=== PATIENT | male | born 1960 | race American Indian/Alaskan Native ===

== ENCOUNTER 2016-09-24 04:23 | Emergency (ER) | payer BC ==
[2016-09-24 06:18] LABS: BUN/Creatinine Ratio 17.08; Blood Urea Nitrogen 41 mg/dL (9-20); Calcium 9.5 mg/dL (8.4-10.2); Carbon Dioxide 22 mmol/L (22-30); Glucose 168 mg/dL (75-100)
[2016-09-24 06:19] LABS: Anion Gap 21 mmol/L; Chloride 102.3 mmol/L (98-107); Potassium 5.2 mmol/L (3.6-5.0); Sodium 140 mmol/L (137-145)
[2016-09-24 06:21] LABS: Basophils % (Auto) 0.7 % (0.0-1.8); Eosinophils % (Auto) 4.9 % (0.0-4.3); Hematocrit 37.9 % (35.5-45.6); Hemoglobin 12.5 gm/dl (11.8-15.2); Mean Corpuscular HGB Conc 33 % (32-34); Mean Corpuscular Hemoglobin 27 pg (28-32); Mean Corpuscular Volume 81 fl (84-94); Platelet Count 225 K/mm3 (140-440); Red Blood Count 4.68 M/mm3 (3.65-5.03); Red Cell Distribution Width 14.3 % (13.2-15.2); White Blood Count 6.9 K/mm3 (4.5-11.0)
[2016-09-24 08:33] LABS: Bilirubin,Urine NEG (Negative); Blood,Urine SM (Negative); Ketones,Urine NEG (Negative); Leukocyte Esterase,Urine NEG (Negative); Nitrite,Urine NEG (Negative); Urobilinogen,Urine < 2.0 mg/dL (<2.0)
[2016-09-24 08:49] LABS: Protein,Urine >500 mg/dL (Negative)
--- NOTE | 2016-09-24 09:57 | XRay Report ---
ROUTINE CHEST, TWO VIEWS: HISTORY: Shortness of breath. The trachea, heart, mediastinal contour, lung del rosario and bony thorax are unremarkable. Mild pulmonary venous congestion has resolved since 05/29/16. IMPRESSION: Unremarkable chest x-ray.
--- NOTE | 2016-09-24 12:24 | Emergency Department Report ---
HPI - General Chief Complaint: Upper Respiratory Infection Time Seen by Provider: 09/24/16 12:09 - HPI HPI: Chief complaint: Cough HPI: Patient is 56-year-old male with a history of renal insufficiency, congestive heart failure, hypertension who states he's had a cough for the last week. He states he has clear sputum. No fever no shortness of breath no chest pain. Patient did have his flu shot. Patient states that his cough becomes so bad at times that he retches. Mode of arrival: [private car] Source: [Patient] [old chart] Began: One week Duration: One week Context: See above Quality: Pain-free Severity: 0 out of 10 Improved with: Nothing Worsened with: [Nothing Associated signs and symptoms: See above ED Past Medical Hx - Past Medical History Hx Hypertension: Yes Hx Congestive Heart Failure: Yes Hx Diabetes: Yes Hx Renal Disease: Yes (decreased kidney function in the past) Hx Asthma: No Hx COPD: No - Social History Smoking Status: Never Smoker - Medications Home Medications: Home Medications Medication Instructions Recorded Confirmed Last Taken Type Dulaglutide [Trulicity] 1.5 mg SQ 1XW 05/30/16 05/30/16 Unknown History Ergocalciferol [Vitamin D2] 1 cap PO 1XW 05/30/16 05/30/16 Unknown History Ezetimibe/Simvastatin (Nf) 1 tab PO QHS 05/30/16 05/30/16 Unknown History [Vytorin 10-40 mg (Nf)] Carvedilol [Coreg] 25 mg PO BID #60 tablet 05/31/16 Unknown Rx Furosemide [Lasix] 20 mg PO QDAY #14 tablet 05/31/16 Unknown Rx amLODIPine [Norvasc] 5 mg PO DAILY #30 tab 05/31/16 Unknown Rx hydrALAZINE [Apresoline TAB] 50 mg PO BID #60 tablet 05/31/16 Unknown Rx Benzonatate [Tessalon Perles] 200 mg PO Q8HR PRN #20 capsule 09/24/16 Unknown Rx Ondansetron [Zofran Odt] 4 mg PO Q4H PRN #14 tab.rapdis 09/24/16 Unknown Rx ED Review of Systems ROS: Stated complaint: DRY HEAVING, COUGH Other details as noted in HPI ROS Constitutional: No fever ENT: No uri symptoms Cardiovascular: No chest pain Respiratory: No sob GI: No nausea vomiting or diarrhea : No dysuria frequency or urgency, Skin: No rash Neuro: No focal weakness or numbness Psych: No depression Edgar/lymph: Trace edema Physical Exam - Physical Exam Vital Signs: Vital Signs 09/24/16 05:33 Temperature 98.3 F Pulse Rate 69 Blood Pressure 173/83 O2 Sat by Pulse 96 Oximetry Physical Exam: GENERAL: The patient is well-developed well-nourished . HEENT: Normocephalic. Atraumatic. Extraocular motions are intact. Patient has moist mucous membranes. NECK: Supple. No meningitic signs are noted. There is no adenopathy noted. CHEST/LUNGS: Clear to auscultation. There is no respiratory distress noted. HEART/CARDIOVASCULAR: Regular. There is no tachycardia. ABDOMEN: Abdomen is soft, nontender. Patient has normal bowel sounds. There is no abdominal distention. SKIN: There is no rash. There is trace bilateral pedal edema. There is no diaphoresis. NEURO: The patient is awake, alert, and oriented. The patient is cooperative. The patient has no focal neurologic deficits. The patient has normal speech. MUSCULOSKELETAL: There is no tenderness or deformity. There is no limitation range of motion. There is no evidence of acute injury. ED Course Vital Signs 09/24/16 05:33 Temperature 98.3 F Pulse Rate 69 Blood Pressure 173/83 O2 Sat by Pulse 96 Oximetry ED Medical Decision Making - Lab Data Result diagrams: 09/24/16 05:50 09/24/16 05:50 - EKG Data -: EKG Interpreted by Nh EKG shows normal: sinus rhythm Rate: normal (71) - EKG Data When compared to previous EKG there are: no significant change Interpretation: nonspecific ST-T wave jamaal, other (left anterior fascicular block ) - Radiology Data Radiology results: report reviewed (no acute process) Critical care attestation.: If time is entered above; I have spent that time in minutes in the direct care of this critically ill patient, excluding procedure time. ED Disposition Clinical Impression: Renal insufficiency Upper respiratory infection Qualifiers: URI type: unspecified URI Qualified Code(s): J06.9 - Acute upper respiratory infection, unspecified Disposition: DISCHARGED TO HOME OR SELFCARE Is pt being admited?: No Does the pt Need Aspirin: No Condition: Stable Instructions: Upper Respiratory Infection (ED) Prescriptions: Benzonatate [Tessalon Perles] 200 mg PO Q8HR PRN #20 capsule PRN Reason: Cough Ondansetron [Zofran Odt] 4 mg PO Q4H PRN #14 tab.rapdis PRN Reason: Nausea And Vomiting Referrals: ARVIND JHAVERI MD [Primary Care Provider] - 7-10 days (Follow-up if there is no improvement or if you get worse.) Time of Disposition: 12:22
[2016-09-24 12:35] VITALS: BP 174/89
== END 2016-09-24 12:36 | disposition home or self-care (01) ==
LOC: ED 04:23
DX: J06.9 Acute upper respiratory infection, unspecified (principal); N28.9 Disorder of kidney and ureter, unspecified; I10 Essential (primary) hypertension; I50.9 Heart failure, unspecified; E11.9 Type 2 diabetes mellitus without complications
CPT/HCPCS: 36415; 71020; 80048; 81001; 83880; 84484; 85025; 93005; 93010

== ENCOUNTER 2016-10-24 17:05 | Outpatient (CLI) | payer BC ==
[2016-10-24 17:47] LABS: BUN/Creatinine Ratio 16.8; Calcium 8.3 mg/dL (8.4-10.2); Chloride 101.7 mmol/L (98-107); Potassium 4.5 mmol/L (3.6-5.0)
== END 2016-10-24 17:06 | disposition home or self-care (01) ==
LOC: LAB 17:05
PROVIDERS: ATTEND Internal Medicine Nephrology
DX: E87.5 Hyperkalemia (principal)
CPT/HCPCS: 36415; 80048

== ENCOUNTER → 2018-02-18 | Outpatient (CLI) | payer BC | END | disposition home or self-care (01) | LOC: SLR 11:00 | PROVIDERS: ATTEND Otolaryngology | DX: G47.33 Obstructive sleep apnea (adult) (pediatric) (principal); I13.0 Hypertensive heart and chronic kidney disease with heart failure and stage 1 through stage 4 chronic kidney disease, or unspecified chronic kidney disease; I50.31 Acute diastolic (congestive) heart failure; E11.22 Type 2 diabetes mellitus with diabetic chronic kidney disease; N18.4 Chronic kidney disease, stage 4 (severe); D63.1 Anemia in chronic kidney disease | CPT/HCPCS: 95810 ==

== ENCOUNTER 2018-03-26 15:45 | Emergency (ER) | payer BC ==
[2018-03-26 16:40] LABS: Bilirubin,Urine NEG (Negative); Blood,Urine NEG (Negative); Color,Urine Straw (Yellow); Urobilinogen,Urine < 2.0 mg/dL (<2.0); WBC,Urine < 1.0 /HPF (0.0-6.0)
[2018-03-26 16:59] LABS: Basophils % (Auto) 0.4 % (0.0-1.8); Eosinophils # (Auto) 0.1 K/mm3 (0.0-0.4); Eosinophils % (Auto) 1.3 % (0.0-4.3); Lymphocytes % (Auto) 22.2 % (13.4-35.0); Mean Corpuscular HGB Conc 37 % (32-34); Mean Corpuscular Hemoglobin 28 pg (28-32); Mean Corpuscular Volume 76 fl (84-94); Monocytes # (Auto) 0.6 K/mm3 (0.0-0.8); Monocytes % (Auto) 6.7 % (0.0-7.3); Platelet Count 260 K/mm3 (140-440); Red Blood Count 4.37 M/mm3 (3.65-5.03); Red Cell Distribution Width 13.1 % (13.2-15.2)
[2018-03-26 17:12] LABS: Calcium 8.7 mg/dL (8.4-10.2)
[2018-03-26 17:18] LABS: Hematocrit 33.2 % (35.5-45.6); Hemoglobin 12.2 gm/dl (11.8-15.2)
[2018-03-26] MEDS ORDERED: K-DUR PO ONE (17:49)
[2018-03-26] MEDS ORDERED: HumuLIN R IV ONE ×3 (17:57→21:15)
[2018-03-26] MEDS ORDERED: NACL 0.9% 250ML 250 ML IV ONE (18:04)
--- NOTE | 2018-03-26 18:05 | Emergency Department Report ---
HPI - General Chief Complaint: Hyperglycemia Time Seen by Provider: 03/26/18 17:49 - HPI HPI: 57-year-old male presents to the emergency department, sent in by his easement worker Dr. Coates, with complaint of hyperglycemia. The patient has a history of insulin-dependent diabetes on Humalog for which he says he takes 30 units once daily. The patient says that he forgot to take it this morning. He has a history of chronic kidney disease but has not dialysis dependent, hypertension and CHF. He denies any physical complaints at this time. He did not take anything or was not given anything for his symptoms prior to presentation. His primary care physician is Dr. Arvind Soto. No recent travel or sick contacts at home. ED Past Medical Hx - Past Medical History Hx Hypertension: Yes Hx Congestive Heart Failure: Yes Hx Diabetes: Yes Hx Renal Disease: Yes (decreased kidney function in the past) Hx Asthma: No Hx COPD: No - Surgical History Past Surgical History?: No - Social History Smoking Status: Never Smoker Substance Use Type: None - Medications Home Medications: Home Medications Medication Instructions Recorded Confirmed Last Taken Type Ergocalciferol [Vitamin D2] 1 cap PO 1XW 05/30/16 12/13/17 Unknown History Ezetimibe/Simvastatin (Nf) 1 tab PO QHS 05/30/16 12/13/17 Unknown History [Vytorin 10-40 mg (Nf)] Carvedilol [Coreg] 25 mg PO BID #60 tablet 12/22/17 Unknown Rx Ezetimibe [Zetia] 10 mg PO QDAY tablet 12/22/17 Unknown Rx Furosemide [Lasix TAB] 20 mg PO BID #60 tablet 12/22/17 Unknown Rx NIFEdipine [Nifedipine ER] 30 mg PO QDAY #30 tab.er.24 12/22/17 Unknown Rx Pravastatin [Pravachol] 80 mg PO QHS #30 tablet 12/22/17 Unknown Rx Sodium Bicarbonate 650 mg PO BID #60 tablet 12/22/17 Unknown Rx amLODIPine [Norvasc] 10 mg PO DAILY #30 tablet 12/22/17 Unknown Rx hydrALAZINE [Apresoline TAB] 50 mg PO BID #60 tablet 12/22/17 Unknown Rx levoFLOXacin [Levaquin TAB] 750 mg PO Q48HR #7 tablet 12/22/17 Unknown Rx metOLazone [Metolazone] 5 mg PO QDAY #30 tablet 12/22/17 Unknown Rx Potassium Chloride [K-Dur] 20 meq PO BID #30 tab 03/27/18 Unknown Rx ED Review of Systems ROS: Stated complaint: ABNORMAL LABS Other details as noted in HPI Comment: All other systems reviewed and negative Constitutional: denies: chills, fever Eyes: denies: eye pain, eye discharge, vision change ENT: denies: ear pain, throat pain Respiratory: denies: cough, shortness of breath, wheezing Cardiovascular: denies: chest pain, palpitations Gastrointestinal: denies: abdominal pain, nausea, diarrhea Genitourinary: denies: urgency, dysuria Musculoskeletal: denies: back pain, joint swelling, arthralgia Skin: denies: rash, lesions Neurological: denies: headache, weakness, paresthesias Physical Exam - Physical Exam Vital Signs: Vital Signs 03/26/18 16:07 Temperature 98.5 F Pulse Rate 83 Respiratory 20 Rate Blood Pressure 160/79 O2 Sat by Pulse 99 Oximetry Physical Exam: GENERAL: The patient is well-developed well-nourished. HENT: Normocephalic. Atraumatic. Patient has moist mucous membranes. EYES: Extraocular motions are intact. Pupils equal reactive to light bilaterally. NECK: Supple. Trachea is midline. CHEST/LUNGS: Clear to auscultation. There is no respiratory distress noted. HEART/CARDIOVASCULAR: Regular. There is no tachycardia. There is no murmur. ABDOMEN: Abdomen is soft, nontender. Patient has normal bowel sounds. There is no abdominal distention. SKIN: Skin is warm and dry. NEURO: The patient is awake, alert, and oriented. The patient is cooperative. The patient has no focal neurologic deficits. The patient has normal speech. MUSCULOSKELETAL: There is no tenderness or deformity. There is no limitation range of motion. There is no evidence of acute injury. ED Course Vital Signs 03/26/18 16:07 Temperature 98.5 F Pulse Rate 83 Respiratory 20 Rate Blood Pressure 160/79 O2 Sat by Pulse 99 Oximetry ED Medical Decision Making - Lab Data Result diagrams: 03/26/18 16:39 03/27/18 03:49 - Medical Decision Making Patient presented with hyperglycemia but there was no venous acidosis or elevated anion gap and the patient did not appear to be in diabetic ketoacidosis. He was given 2 different doses of IV insulin but not a significant amount of fluid due to his history of CHF. He had some borderline hypokalemia so he was given 60 mEq of potassium chloride. The IV insulin brought his blood sugar down to a reasonable level but once again pushed the potassium intracellularly and his repeat potassium was 2.7. He was given another 60 mEq of potassium and the potassium levels rechecked and it had come up to 3.3. 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 - Differential Diagnosis DKA, electrolyte abnormalities, HHNK Critical Care Time: No Critical care attestation.: If time is entered above; I have spent that time in minutes in the direct care of this critically ill patient, excluding procedure time. ED Disposition Clinical Impression: Hypokalemia Diabetes mellitus with hyperglycemia Qualifiers: Diabetes mellitus type: type 1 Qualified Code(s): E10.65 - Type 1 diabetes mellitus with hyperglycemia CKD (chronic kidney disease) Qualifiers: Chronic kidney disease stage: unspecified stage Qualified Code(s): N18.9 - Chronic kidney disease, unspecified Disposition: DC-01 TO HOME OR SELFCARE Is pt being admited?: No Condition: Stable Instructions: Chronic Kidney Disease (ED), Hyperkalemia (ED), Diabetic Hyperglycemia (ED) Additional Instructions: Please follow-up with your diabetes physician later this morning as previously scheduled. Please follow-up with your easement worker. Return to the emergency Department with any worsening of your symptoms or any acute distress. Please continue to take your insulin. Try and stay away from foods that are high in sugar, carbohydrates and starches. Keep a blood sugar log. Prescriptions: Potassium Chloride [K-Dur] 20 meq PO BID #30 tab Referrals: ARVIND SOTO MD [Primary Care Provider] - 2-3 Days ELLIE NEGRETE MD [Staff Physician] - 2-3 Days Time of Disposition: 02:13
[2018-03-26] MEDS: KCL 10MEQ/100ML 10 MEQ/100 ML BAG IV SCH ×2 (19:02→22:11)
[2018-03-26] MEDS ORDERED: NACL 0.9% 100 ML ONE (20:06)
[2018-03-27] MEDS ORDERED: K-DUR PO ONE (01:14)
[2018-03-27] MEDS: KCL 10MEQ/100ML 10 MEQ/100 ML BAG IV SCH ×2 (02:14→04:07)
[2018-03-27 05:36] VITALS: BP 123/72
== END 2018-03-27 06:18 | disposition home or self-care (01) ==
LOC: ED 15:45
DX: E10.65 Type 1 diabetes mellitus with hyperglycemia (principal); N18.9 Chronic kidney disease, unspecified; E87.6 Hypokalemia; I11.0 Hypertensive heart disease with heart failure; I50.9 Heart failure, unspecified; Z79.899 Other long term (current) drug therapy
CPT/HCPCS: 36415; 80048; 81001; 82805; 82962; 84132; 85025; 96365; 96366; 96375; 99284; J3480; J7050; J1815

== ENCOUNTER 2018-04-03 11:00 | Outpatient (CLI) | payer BC | END 2018-04-03 11:01 | disposition home or self-care (01) | LOC: SLR 11:00 | PROVIDERS: ATTEND Otolaryngology | DX: G47.33 Obstructive sleep apnea (adult) (pediatric) (principal); I13.0 Hypertensive heart and chronic kidney disease with heart failure and stage 1 through stage 4 chronic kidney disease, or unspecified chronic kidney disease; E11.22 Type 2 diabetes mellitus with diabetic chronic kidney disease; E11.65 Type 2 diabetes mellitus with hyperglycemia; N18.4 Chronic kidney disease, stage 4 (severe); I50.23 Acute on chronic systolic (congestive) heart failure; I50.31 Acute diastolic (congestive) heart failure | CPT/HCPCS: 95811 ==

== ENCOUNTER 2018-10-08 20:52 | Inpatient (IN) | payer OTHER ==
--- NOTE | 2018-10-08 21:12 | Emergency Department Report ---
Blank Doc - Documentation Documentation: 58 y o male with a pmh of CHF,HTN,DM presents to Ed with Sob today after coming down some steps dull pain in mid chest no radiation labs MAin
[2018-10-08 21:30] LABS: Basophils # (Auto) 0.1 K/mm3 (0.0-0.1); Basophils % (Auto) 0.6 % (0.0-1.8); Eosinophils # (Auto) 0.1 K/mm3 (0.0-0.4); Eosinophils % (Auto) 1.3 % (0.0-4.3); Hemoglobin 12.2 gm/dl (11.8-15.2); Lymphocytes # (Auto) 1.9 K/mm3 (1.2-5.4); Lymphocytes % (Auto) 17.2 % (13.4-35.0); Mean Corpuscular HGB Conc 35 % (32-34); Mean Corpuscular Volume 78 fl (84-94); Monocytes # (Auto) 0.7 K/mm3 (0.0-0.8); Monocytes % (Auto) 6.9 % (0.0-7.3); Platelet Count 251 K/mm3 (140-440); Red Blood Count 4.47 M/mm3 (3.65-5.03); Red Cell Distribution Width 14.2 % (13.2-15.2)
[2018-10-08 21:39] LABS: INR 0.82 (0.87-1.13)
[2018-10-08 21:40] LABS: Partial Thromboplastin Time 20.7 Sec. (24.2-36.6)
[2018-10-08 22:06] LABS: Bilirubin,Urine NEG (Negative); Blood,Urine NEG (Negative); Color,Urine Straw (Yellow); Mucus,Urine FEW /HPF; Urobilinogen,Urine < 2.0 mg/dL (<2.0)
[2018-10-08 22:11] LABS: Calcium 8.6 mg/dL (8.4-10.2)
--- NOTE | 2018-10-08 22:13 | Emergency Department Report ---
ED Chest Pain HPI - General Chief Complaint: Chest Pain Stated Complaint: CHEST PAIN SOB Time Seen by Provider: 10/08/18 21:09 Source: patient Mode of arrival: Ambulatory Limitations: No Limitations - History of Present Illness Initial Comments: 58-year-old male presents to the emergency department with a complaint of midsternal chest pain and shortness of breath that started about 30 minutes prior to arrival. The symptoms worsen with exertion. He denies any fever, nausea, vomiting or diaphoresis. He did not take anything for his symptoms prior to arrival. He has a past medical history of hypertension, insulin-dependent diabetes, chronic kidney disease, CHF. His primary care physician is Dr. Tigist Hewitt, leveler helper is Dr. Coates, and his feature writer is Dr. Archibald. No recent travel or sick contacts at home. Severity scale (0 -10): 3 - Related Data Home Medications Medication Instructions Recorded Confirmed Last Taken Ergocalciferol [Vitamin D2] 1 cap PO 1XW 05/30/16 12/13/17 Unknown Ezetimibe/Simvastatin (Nf) 1 tab PO QHS 05/30/16 12/13/17 Unknown [Vytorin 10-40 mg (Nf)] Previous Rx's Medication Instructions Recorded Last Taken Type Carvedilol [Coreg] 25 mg PO BID #60 tablet 12/22/17 Unknown Rx Ezetimibe [Zetia] 10 mg PO QDAY tablet 12/22/17 Unknown Rx Furosemide [Lasix TAB] 20 mg PO BID #60 tablet 12/22/17 Unknown Rx NIFEdipine [Nifedipine ER] 30 mg PO QDAY #30 tab.er.24 12/22/17 Unknown Rx Pravastatin [Pravachol] 80 mg PO QHS #30 tablet 12/22/17 Unknown Rx Sodium Bicarbonate 650 mg PO BID #60 tablet 12/22/17 Unknown Rx amLODIPine [Norvasc] 10 mg PO DAILY #30 tablet 12/22/17 Unknown Rx hydrALAZINE [Apresoline TAB] 50 mg PO BID #60 tablet 12/22/17 Unknown Rx levoFLOXacin [Levaquin TAB] 750 mg PO Q48HR #7 tablet 12/22/17 Unknown Rx metOLazone [Metolazone] 5 mg PO QDAY #30 tablet 12/22/17 Unknown Rx Potassium Chloride [K-Dur] 20 meq PO BID #30 tab 03/27/18 Unknown Rx Tizanidine HCl [Zanaflex] 2 mg PO BID #20 capsule 07/05/18 Unknown Rx Allergies Allergy/AdvReac Type Severity Reaction Status Date / Time No Known Allergies Allergy Verified 03/26/18 16:07 Heart Score - HEART Score History: Moderately suspicious EKG: Normal Age: 45-65 Risk factors: 1-2 risk factors Troponin: 1-3x normal limit HEART Score: 4 - Critical Actions Critical Actions: 4-6 pts:12-16.6% risk of adverse cardiac event. Should be admitted ED Review of Systems ROS: Stated complaint: CHEST PAIN SOB Other details as noted in HPI Comment: All other systems reviewed and negative Constitutional: denies: chills, fever Eyes: denies: eye pain, vision change ENT: denies: ear pain, throat pain Respiratory: shortness of breath. denies: cough Cardiovascular: chest pain. denies: palpitations Gastrointestinal: denies: abdominal pain, vomiting Genitourinary: denies: dysuria, discharge Musculoskeletal: denies: back pain, arthralgia Skin: denies: rash, lesions Neurological: denies: headache, weakness ED Past Medical Hx - Past Medical History Previous Medical History?: Yes Hx Hypertension: Yes Hx Congestive Heart Failure: Yes Hx Diabetes: Yes Hx Renal Disease: Yes (decreased kidney function in the past) Hx Asthma: No Hx COPD: No - Surgical History Additional Surgical History: "nerve procedure on elbow", 10/02/2018 - Social History Smoking Status: Never Smoker Substance Use Type: None - Medications Home Medications: Home Medications Medication Instructions Recorded Confirmed Last Taken Type Ergocalciferol [Vitamin D2] 1 cap PO 1XW 05/30/16 12/13/17 Unknown History Ezetimibe/Simvastatin (Nf) 1 tab PO QHS 05/30/16 12/13/17 Unknown History [Vytorin 10-40 mg (Nf)] Carvedilol [Coreg] 25 mg PO BID #60 tablet 12/22/17 Unknown Rx Ezetimibe [Zetia] 10 mg PO QDAY tablet 12/22/17 Unknown Rx Furosemide [Lasix TAB] 20 mg PO BID #60 tablet 12/22/17 Unknown Rx NIFEdipine [Nifedipine ER] 30 mg PO QDAY #30 tab.er.24 12/22/17 Unknown Rx Pravastatin [Pravachol] 80 mg PO QHS #30 tablet 12/22/17 Unknown Rx Sodium Bicarbonate 650 mg PO BID #60 tablet 12/22/17 Unknown Rx amLODIPine [Norvasc] 10 mg PO DAILY #30 tablet 12/22/17 Unknown Rx hydrALAZINE [Apresoline TAB] 50 mg PO BID #60 tablet 12/22/17 Unknown Rx levoFLOXacin [Levaquin TAB] 750 mg PO Q48HR #7 tablet 12/22/17 Unknown Rx metOLazone [Metolazone] 5 mg PO QDAY #30 tablet 12/22/17 Unknown Rx Potassium Chloride [K-Dur] 20 meq PO BID #30 tab 03/27/18 Unknown Rx Tizanidine HCl [Zanaflex] 2 mg PO BID #20 capsule 07/05/18 Unknown Rx ED Physical Exam - General Limitations: No Limitations - Other Other exam information: GENERAL: The patient is well-developed well-nourished. HEENT: Normocephalic. Atraumatic. Patient has moist mucous membranes. EYES: Extraocular motions are intact. NECK: Supple. Trachea is midline. CHEST/LUNGS: Clear to auscultation. There is no respiratory distress noted. Chest pain is not reproducible to palpation of the chest wall. HEART/CARDIOVASCULAR: Regular. There is no tachycardia. There is no obvious murmur. ABDOMEN: Abdomen is soft, nontender. Patient has normal bowel sounds. There is no abdominal distention. SKIN: Skin is warm and dry. NEURO: The patient is awake, alert, and oriented. The patient is cooperative. The patient has no focal neurologic deficits. The patient has normal speech. MUSCULOSKELETAL: There is no tenderness or deformity. There is no evidence of acute injury. ED Course Vital Signs 10/08/18 10/08/18 21:09 22:49 Temperature 97.8 F Pulse Rate 80 Respiratory 18 18 Rate Blood Pressure 165/77 O2 Sat by Pulse 98 98 Oximetry DARRIAN score - Darrian Score Age > 65: (0) No Aspirin use within the Past 7 Days: (0) No 3 or more CAD Risk Factors: (1) Yes 2 or more Angina events in past 24 hrs: (1) Yes Known CAD with more than 50% Stenosis: (0) No Elevated Cardiac Markers: (1) Yes ST Deviation Greater than 0.5mm: (0) No DARRIAN Score: 3 ED Medical Decision Making - Lab Data Result diagrams: 10/08/18 21:20 10/08/18 21:20 - EKG Data -: EKG Interpreted by Me EKG shows normal: sinus rhythm, axis (left axis deviation), intervals, QRS complexes (Q waves to the inferior leads), ST-T waves Rate: normal - EKG Data When compared to previous EKG there are: no significant change Interpretation: unchanged when compared t (07/05/18) - Radiology Data Radiology results: report reviewed, image reviewed interpreted by me: Chest x-ray does not show any pneumothorax, pleural effusion, pneumonia or obvious focal consolidation. PROCEDURE: Nuclear medicine ventilation and perfusion lung scan. TECHNIQUE: Ventilation imaging was done in the posterior projection using 19.5 mCi of xenon-133 gas. Perfusion imaging was done in multiple projections using 6.2 mCi of technetium 99m MAA. HISTORY: Shortness of breath, elevated d-dimer. COMPARISONS: Comparison chest radiograph 10/08/2018. FINDINGS: There is fairly homogeneous, symmetrical ventilation bilaterally. There is no trapping of xenon gas during the washout phase of the study. The perfusion images are also fairly homogeneous. There are no significant perfusion abnormalities identified. The scan is normal and caries a very low probability of pulmonary embolism. IMPRESSION: Very low probability of pulmonary embolism. This document is electronically signed by Rodríguez Huynh MD., October 09 2018 12:08:29 AM ET Transcribed By: [facility] Dictated By: RODRÍGUEZ HUYNH MD Electronically Authenticated By: RODRÍGUEZ HUYNH MD Signed Date/Time: 10/09/18 0010 - Medical Decision Making This patient presents with acute midsternal chest pain or shortness of breath that started about 30 minutes prior to arrival. EKG does not show any signs of ST elevation OR. Chest x-ray does not show any focal consolidation, p neumothorax, pneumonia, pleural effusions, or any other acute process. Labs show his chronic kidney disease. He had an elevated troponin at 0.037 which is consistent with previous visits and also may be secondary to the chronic kidney disease. The patient had an elevated d-dimer and therefore a ventilation perfusion scan was done and resulted as low probability for a pulmonary embolism. The patient will be admitted to the hospital for further evaluation and treatment and was accepted for admission by the hospitalist, Dr. Roberts. - Differential Diagnosis OR, PE, Costochondritis, GERD, Pneumonia Critical Care Time: No Critical care attestation.: If time is entered above; I have spent that time in minutes in the direct care of this critically ill patient, excluding procedure time. ED Disposition Clinical Impression: Chronic kidney disease, stage IV (severe), Acute chest pain Hypertension Qualifiers: Hypertension type: essential hypertension Qualified Code(s): I10 - Essential (primary) hypertension Disposition: OP ADMIT IP TO THIS HOSP Is pt being admited?: Yes Condition: Fair Instructions: Chest Pain (ED), Hypertension (ED) Referrals: TIGIST HEWITT MD [Primary Care Provider] - 3-5 Days Time of Disposition: 00:27
--- NOTE | 2018-10-08 23:44 | XRay Report ---
PROCEDURE: XR CHEST ROUTINE 2V TECHNIQUE: 2 views of the chest: PA and lateral HISTORY: Chest pain. COMPARISONS: Radiographs dated December 17, 2017. FINDINGS: No lobar consolidation. No pleural effusion or pneumothorax. Cardiac and mediastinal silhouettes appear normal. Mild atherosclerotic vascular calcifications of th e aorta. No acute osseous abnormality. Mild thoracic endplate degenerative changes. IMPRESSION: No acute cardiopulmonary disease. This document is electronically signed by Shashi Puga DO., October 08 2018 11:43:08 PM ET
--- NOTE | 2018-10-09 00:10 | Nuclear Medicine Report ---
PROCEDURE: Nuclear medicine ventilation and perfusion lung scan. TECHNIQUE: Ventilation imaging was done in the posterior projection using 19.5 mCi of xenon-133 gas. Perfusion imaging was done in multiple projections using 6.2 mCi of technetium 99m MAA. HISTORY: Shortness of breath, elevated d-dimer. COMPARISONS: Comparison chest radiograph 10/08/2018. FINDINGS: There is fairly homogeneous, symmetrical ventilation bilaterally. There is no trapping of xenon gas d uring the washout phase of the study. The perfusion images are also fairly homogeneous. There are no significant perfusion abnormalities identified. The scan is normal and caries a very low probability of pulmonary embolism. IMPRESSION: Very low probability of pulmonary embolism. This document is electronically signed by Rodríguez Baires MD., October 09 2018 12:08:29 AM ET
[2018-10-09] MEDS ORDERED: BABY ASPIRIN PO ONE (00:18)
[2018-10-09] MEDS ORDERED: MORPHINE IV ONE (00:18)
[2018-10-09] MEDS ORDERED: SODIUM CHLORIDE FLUSH SYRINGE 10 ML IV PRN ×2 (00:31)
[2018-10-09] MEDS ORDERED: PERCOCET 5/325 PO PRN (00:31)
[2018-10-09] MEDS ORDERED: D50W (25GM) Syringe IV PRN (00:31)
[2018-10-09] MEDS ORDERED: TYLENOL PO PRN (00:31)
[2018-10-09] MEDS ORDERED: AMBIEN PO PRN (00:31)
[2018-10-09] MEDS ORDERED: ZOFRAN IV PRN (00:31)
[2018-10-09] MEDS ORDERED: NITROSTAT SL PRN (00:31)
--- NOTE | 2018-10-09 00:45 | History and Physical Report ---
History of Present Illness Date of examination: 10/09/18 Chief complaint: Chest pain History of present illness: 58-year-old male presents to the emergency department with a co mplaint of midsternal chest pain and shortness of breath that started about 30 minutes prior to arrival. The symptoms worsen with exertion. He denies any fever, nausea, vomiting or diaphoresis. He did not take anything for his symptoms prior to arrival. He has a past medical history of hypertension, insulin-dependent diabetes, chronic kidney disease, CHF. His primary care physician is Dr. Shahbaz Hewitt, sales development consultant is Dr. Coates, and his nylon mender is Dr. Archibald. No recent travel or sick contacts at home. Past Surgical History: Other (b/l knee surgery 1988) Social history: , lives with family. denies: smoking, alcohol abuse, prescription drug abuse, IV drug use Family history: diabetes (father, mother, ), other (mother passed due to cardiac arrest, she also had multiple sclerosis. 1 brother has DM, 1 brother from heart failure ) Past History Past Medical History: diabetes, heart failure, hypertension, hyperlipidemia, renal failure Social history: lives with family, full code Medications and Allergies Allergies Allergy/AdvReac Type Severity Reaction Status Date / Time No Known Allergies Allergy Verified 03/26/18 16:07 Home Medications Medication Instructions Recorded Confirmed Last Taken Type Ergocalciferol [Vitamin D2] 1 cap PO 1XW 05/30/16 12/13/17 Unknown History Ezetimibe/Simvastatin (Nf) 1 tab PO QHS 05/30/16 12/13/17 Unknown History [Vytorin 10-40 mg (Nf)] Carvedilol [Coreg] 25 mg PO BID #60 tablet 12/22/17 Unknown Rx Ezetimibe [Zetia] 10 mg PO QDAY tablet 12/22/17 Unknown Rx Furosemide [Lasix TAB] 20 mg PO BID #60 tablet 12/22/17 Unknown Rx NIFEdipine [Nifedipine ER] 30 mg PO QDAY #30 tab.er.24 12/22/17 Unknown Rx Pravastatin [Pravachol] 80 mg PO QHS #30 tablet 12/22/17 Unknown Rx Sodium Bicarbonate 650 mg PO BID #60 tablet 12/22/17 Unknown Rx amLODIPine [Norvasc] 10 mg PO DAILY #30 tablet 12/22/17 Unknown Rx hydrALAZINE [Apresoline TAB] 50 mg PO BID #60 tablet 12/22/17 Unknown Rx levoFLOXacin [Levaquin TAB] 750 mg PO Q48HR #7 tablet 12/22/17 Unknown Rx metOLazone [Metolazone] 5 mg PO QDAY #30 tablet 12/22/17 Unknown Rx Potassium Chloride [K-Dur] 20 meq PO BID #30 tab 03/27/18 Unknown Rx Tizanidine HCl [Zanaflex] 2 mg PO BID #20 capsule 07/05/18 Unknown Rx Review of Systems All systems: negative (as mentioned in HPI) Exam - Physical Exam Narrative exam: General: the patient is awake alert oriented to time place and person. no e vidence of acute distress HEENT: Head is atraumatic normocephalic,. Pupils equal round reactive to light and accommodation, extraocular movements intact. Oral mucosa moist. Oropharynx clear. No pharyngeal erythema or tonsillar exudate. Neck: Supple no JVD no thyromegaly or lymphadenopathy. Heart: Regular rate and rhythm no murmurs or gallops. S1 and S2 normal. PMI not displaced. Lungs: Clear to auscultation bilaterally. No rales rhonchi wheezing. Nonlabored breathing. Normal chest wall expansion. Abdomen: Soft, nondistended, and nontender. Normoactive bowel sounds. No hepatosplenomegaly. No abdominal masses or bruit appreciated. Extremities: No cyanosis/clubbing/ edema. Musculoskeletal: Normal range of movement all joints. No obvious deformity or tenderness to palpation. Normal muscle tone. Back: Normal alignment. No step-off. No midline or paraspinal tenderness. No CVA tenderness. Neurological: Grossly intact and nonfocal. No cerebellar signs. Cranial nerves II-12 grossly intact. Strength 5 out of 5 all 4 extremities. Sensations grossly intact. Skin: Warm and dry no rashes or bruises. Psychiatric: Normal mood. Appropriate affect and good insight and judgment. Vascular system: No lymphadenopathy. Distal pulses 2+ bilaterally. - Constitutional Vitals: Temp Pulse Resp BP Pulse Ox 97.8 F 76 14 142/62 96 10/08/18 21:09 10/09/18 00:30 10/09/18 00:30 10/09/18 00:30 10/09/18 00:30 Results - Labs CBC & Chem 7: 10/08/18 21:20 04/02/19 21:20 Labs: Laboratory Last Values WBC 10.8 K/mm3 (4.5-11.0) 10/08/18 21:20 RBC 4.47 M/mm3 (3.65-5.03) 10/08/18 21:20 Hgb 12.2 gm/dl (11.8-15.2) 10/08/18 21:20 Hct 35.0 % (35.5-45.6) L 10/08/18 21:20 MCV 78 fl (84-94) L 10/08/18 21:20 MCH 27 pg (28-32) L 10/08/18 21:20 MCHC 35 % (32-34) H 10/08/18 21:20 RDW 14.2 % (13.2-15.2) 10/08/18 21:20 Plt Count 251 K/mm3 (140-440) 10/08/18 21:20 Lymph % (Auto) 17.2 % (13.4-35.0) 10/08/18 21:20 [place] % (Auto) 6.9 % (0.0-7.3) 10/08/18 21:20 Eos % (Auto) 1.3 % (0.0-4.3) 10/08/18 21:20 Baso % (Auto) 0.6 % (0.0-1.8) 10/08/18 21:20 Lymph # 1.9 K/mm3 (1.2-5.4) 10/08/18 21:20 [place] # 0.7 K/mm3 (0.0-0.8) 10/08/18 21:20 Eos # 0.1 K/mm3 (0.0-0.4) 10/08/18 21:20 Baso # 0.1 K/mm3 (0.0-0.1) 10/08/18 21:20 Seg Neutrophils % 74.0 % (40.0-70.0) H 10/08/18 21:20 Seg Neutrophils # 8.0 K/mm3 (1.8-7.7) H 10/08/18 21:20 PT 11.8 Sec. (12.2-14.9) L 10/08/18 21:20 INR 0.82 (0.87-1.13) L 10/08/18 21:20 APTT 20.7 Sec. (24.2-36.6) L 10/08/18 21:20 D-Dimer 535.86 ng/mlDDU (0-234) H 10/08/18 21:20 Sodium 141 mmol/L (137-145) 10/08/18 21:20 Potassium 3.2 mmol/L (3.6-5.0) L 10/08/18 21:20 Chloride 98.1 mmol/L (98-107) 10/08/18 21:20 Carbon Dioxide 24 mmol/L (22-30) 10/08/18 21:20 Anion Gap 22 mmol/L 10/08/18 21:20 BUN 84 mg/dL (9-20) H 10/08/18 21:20 Creatinine 4.1 mg/dL (0.8-1.5) H 10/08/18 21:20 Estimated GFR 18 ml/min 10/08/18 21:20 BUN/Creatinine Ratio 20 % 10/08/18 21:20 Glucose 77 mg/dL (75-100) 10/08/18 21:20 Calcium 8.6 mg/dL (8.4-10.2) 10/08/18 21:20 Troponin T 0.037 ng/mL (0.00-0.029) H 10/08/18 21:20 NT-Pro-B Natriuret Pep 909.7 pg/mL (0-900) H 10/08/18 21:24 Urine Color Straw (Yellow) 10/08/18 21:32 Urine Turbidity Clear (Clear) 10/08/18 21:32 Urine pH 6.0 (5.0-7.0) 10/08/18 21:32 Ur Specific [place] 1.008 (1.003-1.030) 10/08/18 21:32 Urine Protein 100 mg/dl mg/dL (Negative) 10/08/18 21:32 Urine Glucose (UA) Neg mg/dL (Negative) 10/08/18 21:32 Urine Ketones Neg mg/dL (Negative) 10/08/18 21:32 Urine Blood Neg (Negative) 10/08/18 21:32 Urine Nitrite Neg (Negative) 10/08/18 21:32 Urine Bilirubin Neg (Negative) 10/08/18 21:32 Urine Urobilinogen < 2.0 mg/dL (<2.0) 10/08/18 21:32 Ur Leukocyte Esterase Neg (Negative) 10/08/18 21:32 Urine WBC (Auto) 1.0 /HPF (0.0-6.0) 10/08/18 21:32 Urine RBC (Auto) 3.0 /HPF (0.0-6.0) 10/08/18 21:32 U Epithel Cells (Auto) < 1.0 /HPF (0-13.0) 10/08/18 21:32 Urine Mucus Few /HPF 10/08/18 21:32 - Imaging and Cardiology EKG: pending, other Imaging and Cardiology: EKG shows normal: sinus rhythm, axis (left axis deviation), intervals, QRS complexes (Q waves to the inferior leads), ST-T waves Rate: normal Lung VQ scan: Low probability PE Chest x-ray: Showing no acute cardiopulmonary process no infiltrates or pulmonar y edema Assessment and Plan Assessment and plan: Assessment and plan: * Chest pain * Shortness of breath * Diabetes mellitus type 2 * CKD stage IV * Chronic congestive heart failure well compensated * Hypertension controlled * Hyperlipidemia * Hypokalemia Plan: The patient to medical floor with telemetry under observation under the chest pain protocol Check serial cardiac enzymes Check echocardiogram his last echocardiogram in December 2017 showed year for 50-55% no evidence of LVH mild pulmonary hypertension Patient follows with cardiology. Will be consulted Schedule patient for stress test in a.m. Continue his home medications diabetes is well-controlled with check hemoglobin A1c continue with sliding scale insulin Monitor blood sugars with Accu-Cheks every before meals and daily at bedtime VQ scan is negative or low probability for PE his shortness of breath is unexplained chest x-ray does not show volume overload We will treat symptomatically with oxygen and bronchodilators Monitor renal function closely avoid nephrotoxins and renally dose all medic ations Start the patient on aspirin 325 mg daily Monitor CBC and electrolytes Replace electrolytes as needed Potassium will be replaced DVT GI prophylaxis as ordered Monitor for the patient closely and adjust management as needed
[2018-10-09] MEDS ORDERED: MORPHINE ONE (00:53)
[2018-10-09 01:29] LABS: Basophils % (Auto) 0.4 % (0.0-1.8); Eosinophils % (Auto) 0.2 % (0.0-4.3); Hematocrit 33.4 % (35.5-45.6); Hemoglobin 11.6 gm/dl (11.8-15.2); Lymphocytes # (Auto) 1.8 K/mm3 (1.2-5.4); Lymphocytes % (Auto) 16.8 % (13.4-35.0); Mean Corpuscular HGB Conc 35 % (32-34); Mean Corpuscular Volume 79 fl (84-94); Monocytes # (Auto) 0.6 K/mm3 (0.0-0.8); Monocytes % (Auto) 5.3 % (0.0-7.3); Platelet Count 248 K/mm3 (140-440); Red Blood Count 4.25 M/mm3 (3.65-5.03); Red Cell Distribution Width 14.2 % (13.2-15.2)
[2018-10-09 01:45] LABS: Calcium 8.6 mg/dL (8.4-10.2)
[2018-10-09] MEDS: DUONEB *Not for PRN Use IH SCH ×3 (02:30→14:26)
[2018-10-09 03:21] LABS: Chol/HDL Ratio 1.34 %
[2018-10-09] MEDS: LASIX PO SCH ×2 (06:51→17:43)
[2018-10-09] MEDS: HEPARIN SUB-Q SCH ×3 (06:51→21:39)
--- NOTE | 2018-10-09 07:46 | Cat Scan Report ---
PROCEDURE: CT CHEST WO CON TECHNIQUE: Computerized axial tomography of the chest was performed without contrast material. This study is performed without intravenous contrast and the sensitivity for pathology, including neoplasm s, adenopathy, abscess, pulmonary embolism and aortic dissection, is reduced. CT DOSE LENGTH PRODUCT: mGycm HISTORY: r/o PNA COMPARISONS: None . FINDINGS: Heart and pericardium: Normal. Thoracic aorta: Normal. Pulmonary vasculature: Normal. Lymph nodes: There are nonenlarged calcified mediastinal lymph nodes suggesting old granulomatous in fection.. Lungs: The lungs are clear and expanded. There are no infiltrates.. Pleural space: No effusion, thickening, or pneumothorax. Musculoskeletal structures: No significant abnormality. Upper abdominal structures: No significant abnormality. IMPRESSION: The heart size is normal.. There are nonenlarged calcified mediastinal lymph nodes suggesting old granulomatous infection.. The lungs are clear and expanded. There are no infiltrates.. There is no pleural effusion or pneumothorax. This document is electronically signed by Derek Carson MD., October 09 2018 07:44:06 AM ET
[2018-10-09] MEDS: HumaLOG SUB-Q SCH ×4 (08:44→21:40)
[2018-10-09] MEDS: ZAROXOLYN PO SCH (09:26)
[2018-10-09] MEDS: APRESOLINE PO SCH ×2 (09:26→21:43)
[2018-10-09] MEDS: PROCARDIA XL PO SCH (09:27)
[2018-10-09] MEDS: ZANAFLEX PO SCH ×2 (09:27→21:38)
[2018-10-09] MEDS: SODIUM BICARBONATE PO SCH ×2 (09:27→21:38)
[2018-10-09] MEDS: NORVASC PO SCH (09:27)
[2018-10-09] MEDS: K-DUR PO SCH ×2 (09:27→21:39)
[2018-10-09] MEDS: COREG PO SCH ×2 (09:27→21:39)
[2018-10-09] MEDS: SODIUM CHLORIDE FLUSH SYRINGE 10 ML IV SCH ×2 (09:27→21:40)
[2018-10-09] MEDS: COLACE PO SCH ×2 (09:28→21:38)
[2018-10-09] MEDS ORDERED: NON-FORMULARY (Tizanidine Hcl [Zanaflex] 2 MG) PO SCH (10:00)
[2018-10-09] MEDS ORDERED: ASPIRIN PO SCH (10:00)
[2018-10-09] MEDS ORDERED: PNEUMOVAX 23 IM ONE (12:00)
--- NOTE | 2018-10-09 12:43 | Progress Note ---
Assessment and Plan Assessment and plan: Chest pain. Lung VQ scan was low probability for PE. Chest x-ray showed no acute cardiopulmonary process including no infiltrates or pulmonary edema. EKG showed no abnormalities. Follow-up echocardiogram, his last echocardiogram in December 2017 showed year for 50-55% no evidence of LVH mild pulmonary hypertension. Cardiology consulted. Stress test in am. Diabetes mellitus type 2. Check hemoglobin A1c continue with sliding scale insulin. Monitor blood sugars with Accu-Cheks every before meals and daily at bedtime Chronic congestive heart failure, compensated. Cont meds CKD stage IV Hypertension. Cont. antihypertensive meds Hyperlipidemia. Cont statins Hypokalemia. Replete K History Interval history: No new issues overnight. Hospitalist Physical - Constitutional Vitals: Temp Pulse Resp BP Pulse Ox 98.4 F 84 16 155/80 96 10/09/18 08:02 10/09/18 08:18 10/09/18 08:18 10/09/18 08:02 10/09/18 08:51 General appearance: Present: no acute distress, well-nourished - EENT Eyes: Present: PERRL, EOM intact ENT: hearing intact, clear oral mucosa, dentition normal - Neck Neck: Present: supple, normal ROM - Respiratory Respiratory effort: normal Respiratory: bilateral: CTA - Cardiovascular Rhythm: regular Heart Sounds: Present: S1 & S2. Absent: gallop, rub - Extremities Extremities: no ischemia, No edema, Full ROM - Abdominal General gastrointestinal: soft, non-tender, non-distended, normal bowel sounds - Integumentary Integumentary: Present: clear, warm, dry - Neurologic Neurologic: CNII-XII intact, moves all extremities Results - Labs CBC & Chem 7: 10/09/18 01:07 10/09/18 01:07 Labs: Laboratory Last Values WBC 10.8 K/mm3 (4.5-11.0) 10/09/18 01:07 RBC 4.25 M/mm3 (3.65-5.03) 10/09/18 01:07 Hgb 11.6 gm/dl (11.8-15.2) L 10/09/18 01:07 Hct 33.4 % (35.5-45.6) L 10/09/18 01:07 MCV 79 fl (84-94) L 10/09/18 01:07 MCH 27 pg (28-32) L 10/09/18 01:07 MCHC 35 % (32-34) H 10/09/18 01:07 RDW 14.2 % (13.2-15.2) 10/09/18 01:07 Plt Count 248 K/mm3 (140-440) 10/09/18 01:07 Lymph % (Auto) 16.8 % (13.4-35.0) 10/09/18 01:07 [place] % (Auto) 5.3 % (0.0-7.3) 10/09/18 01:07 Eos % (Auto) 0.2 % (0.0-4.3) 10/09/18 01:07 Baso % (Auto) 0.4 % (0.0-1.8) 10/09/18 01:07 Lymph # 1.8 K/mm3 (1.2-5.4) 10/09/18 01:07 [place] # 0.6 K/mm3 (0.0-0.8) 10/09/18 01:07 Eos # 0.0 K/mm3 (0.0-0.4) 10/09/18 01:07 Baso # 0.0 K/mm3 (0.0-0.1) 10/09/18 01:07 Seg Neutrophils % 77.3 % (40.0-70.0) H 10/09/18 01:07 Seg Neutrophils # 8.3 K/mm3 (1.8-7.7) H 10/09/18 01:07 PT 11.8 Sec. (12.2-14.9) L 10/08/18 21:20 INR 0.82 (0.87-1.13) L 10/08/18 21:20 APTT 20.7 Sec. (24.2-36.6) L 10/08/18 21:20 D-Dimer 535.86 ng/mlDDU (0-234) H 10/08/18 21:20 Sodium 140 mmol/L (137-145) 10/09/18 01:07 Potassium 3.3 mmol/L (3.6-5.0) L 10/09/18 01:07 Chloride 98.9 mmol/L (98-107) 10/09/18 01:07 Carbon Dioxide 23 mmol/L (22-30) 10/09/18 01:07 Anion Gap 21 mmol/L 10/09/18 01:07 BUN 83 mg/dL (9-20) H 10/09/18 01:07 Creatinine 4.0 mg/dL (0.8-1.5) H 10/09/18 01:07 Estimated GFR 19 ml/min 10/09/18 01:07 BUN/Creatinine Ratio 21 % 10/09/18 01:07 Glucose 60 mg/dL (75-100) L 10/09/18 01:07 POC Glucose 157 (70-105) H 10/09/18 12:32 Hemoglobin A1c 9.1 % (4-6) H 10/09/18 01:07 Calcium 8.6 mg/dL (8.4-10.2) 10/09/18 01:07 Troponin T 0.046 ng/mL (0.00-0.029) H D 10/09/18 07:08 NT-Pro-B Natriuret Pep 909.7 pg/mL (0-900) H 10/08/18 21:24 Triglycerides 101 mg/dL (2-149) 10/08/18 21:20 Cholesterol 148 mg/dL (50-199) 10/08/18 21:20 LDL Cholesterol Direct 4 mg/dL (50-130) L 10/08/18 21:20 HDL Cholesterol 110 mg/dL (40-59) H 10/08/18 21:20 Cholesterol/HDL Ratio 1.34 % 10/08/18 21:20 Urine Color Straw (Yellow) 10/08/18 21:32 Urine Turbidity Clear (Clear) 10/08/18 21:32 Urine pH 6.0 (5.0-7.0) 10/08/18 21:32 Ur Specific [place] 1.008 (1.003-1.030) 10/08/18 21:32 Urine Protein 100 mg/dl mg/dL (Negative) 10/08/18 21:32 Urine Glucose (UA) Neg mg/dL (Negative) 10/08/18 21:32 Urine Ketones Neg mg/dL (Negative) 10/08/18 21:32 Urine Blood Neg (Negative) 10/08/18 21:32 Urine Nitrite Neg (Negative) 10/08/18 21:32 Urine Bilirubin Neg (Negative) 10/08/18 21:32 Urine Urobilinogen < 2.0 mg/dL (<2.0) 10/08/18 21:32 Ur Leukocyte Esterase Neg (Negative) 10/08/18 21:32 Urine WBC (Auto) 1.0 /HPF (0.0-6.0) 10/08/18 21:32 Urine RBC (Auto) 3.0 /HPF (0.0-6.0) 10/08/18 21:32 U Epithel Cells (Auto) < 1.0 /HPF (0-13.0) 10/08/18 21:32 Urine Mucus Few /HPF 10/08/18 21:32 Active Medications - Current Medications Current Medications: Generic Name Dose Route Start Last Admin Trade Name Freq PRN Reason Stop Dose Admin Acetaminophen 650 mg 10/09/18 00:31 Tylenol PO Q4H PRN Pain MILD(1-3)/Fever >100.5/SAUCEDO Albuterol/Ipratropium 1 ampul 10/09/18 02:00 10/09/18 08:16 Duoneb *Not For Prn Use* IH 1 ampul Q6HRT SANDRITA Administration Amlodipine Besylate 10 mg 10/09/18 10:00 10/09/18 09:27 Norvasc PO 10 mg DAILY SANDRITA Administration Aspirin 325 mg 10/10/18 10:00 Ecotrin PO QDAY SANDRITA Carvedilol 25 mg 10/09/18 10:00 10/09/18 09:27 Coreg PO 25 mg BID SANDRITA Administration Dextrose 50 ml 10/09/18 00:31 D50w (25gm) Syringe IV PRN PRN Hypoglycemia Docusate Sodium 100 mg 10/09/18 10:00 10/09/18 09:28 Colace PO 100 mg BID SANDRITA Administration Ezetimibe 10 mg 10/09/18 22:00 Zetia PO QHS SANDRITA Ergocalciferol 50,000 unit 10/10/18 10:00 Vitamin D2 PO Th SANDRITA Furosemide 20 mg 10/09/18 06:00 10/09/18 06:51 Lasix PO 20 mg BID@0600,1800 SANDRITA Administration Heparin Sodium (Porcine) 5,000 unit 10/09/18 06:00 10/09/18 06:51 Heparin SUB-Q 5,000 unit Q8HR SANDRITA Administration Hydralazine HCl 50 mg 10/09/18 10:00 10/09/18 09:26 Apresoline PO 50 mg BID SANDRITA Administration Insulin Human Lispro 0 unit 10/09/18 07:30 10/09/18 08:44 Humalog SUB-Q Not Given ACHS [facility] Protocol Metolazone 5 mg 10/09/18 10:00 10/09/18 09:26 Zaroxolyn PO 5 mg QDAY SANDRITA Administration Nifedipine 30 mg 10/09/18 10:00 10/09/18 09:27 Procardia Xl PO 30 mg QDAY SANDRITA Administration Nitroglycerin 0.4 mg 10/09/18 00:31 Nitrostat SL Q5M PRN Chest Pain Ondansetron HCl 4 mg 10/09/18 00:31 Zofran IV Q8H PRN Nausea And Vomiting Oxycodone/Acetaminophen 1 tab 10/09/18 00:31 Percocet 5/325 PO Q6H PRN Pain, Moderate (4-6) Potassium Chloride 20 meq 10/09/18 10:00 10/09/18 09:27 K-Dur PO 20 meq BID SANDRITA Administration Pravastatin Sodium 80 mg 10/09/18 22:00 Pravachol PO QHS SANDRITA Sodium Bicarbonate 650 mg 10/09/18 10:00 10/09/18 09:27 Sodium Bicarbonate PO 650 mg BID SANDRITA Administration Sodium Chloride 10 ml 10/09/18 10:00 10/09/18 09:27 Sodium Chloride Flush Syringe 10 Ml IV 10 ml BID SANDRITA Administration Sodium Chloride 10 ml 10/09/18 00:31 Sodium Chloride Flush Syringe 10 Ml IV PRN PRN LINE FLUSH Tizanidine HCl 2 mg 10/09/18 10:00 10/09/18 09:27 Zanaflex PO 2 mg BID SANDRITA Administration Zolpidem Tartrate 5 mg 10/09/18 00:31 Ambien PO QHS PRN Insomnia
--- NOTE | 2018-10-09 13:35 | Consultation ---
History of Present Illness Consult date: 10/09/18 Consult reason: chest pain History of present illness: Patient is a 58-year-old man with hypertension, chronic kidney disease and a diagnosis of heart failure with preserved ejection fraction. He presents to the hospital with atypical, poorly characterized nonexertional chest pain. ECG was normal sinus rhythm, left axis deviation and nonspecific ST and T-wave abnormalities. An echocardiogram shows well-preserved left ventricular systolic function, ejection fraction 55-60%. Past History Past Medical History: diabetes, heart failure, hypertension, hyperlipidemia, renal failure Social history: lives with family, full code Medications and Allergies Allergies Allergy/AdvReac Type Severity Reaction Status Date / Time No Known Allergies Allergy Verified 03/26/18 16:07 Home Medications Medication Instructions Recorded Confirmed Last Taken Type Ergocalciferol [Vitamin D2] 1 cap PO 1XW 05/30/16 12/13/17 Unknown History Ezetimibe/Simvastatin (Nf) 1 tab PO QHS 05/30/16 12/13/17 Unknown History [Vytorin 10-40 mg (Nf)] Carvedilol [Coreg] 25 mg PO BID #60 tablet 12/22/17 Unknown Rx Ezetimibe [Zetia] 10 mg PO QDAY tablet 12/22/17 Unknown Rx Furosemide [Lasix TAB] 20 mg PO BID #60 tablet 12/22/17 Unknown Rx NIFEdipine [Nifedipine ER] 30 mg PO QDAY #30 tab.er.24 12/22/17 Unknown Rx Pravastatin [Pravachol] 80 mg PO QHS #30 tablet 12/22/17 Unknown Rx Sodium Bicarbonate 650 mg PO BID #60 tablet 12/22/17 Unknown Rx amLODIPine [Norvasc] 10 mg PO DAILY #30 tablet 12/22/17 Unknown Rx hydrALAZINE [Apresoline TAB] 50 mg PO BID #60 tablet 12/22/17 Unknown Rx levoFLOXacin [Levaquin TAB] 750 mg PO Q48HR #7 tablet 12/22/17 Unknown Rx metOLazone [Metolazone] 5 mg PO QDAY #30 tablet 12/22/17 Unknown Rx Potassium Chloride [K-Dur] 20 meq PO BID #30 tab 03/27/18 Unknown Rx Tizanidine HCl [Zanaflex] 2 mg PO BID #20 capsule 07/05/18 Unknown Rx Active Meds: Active Medications Acetaminophen (Tylenol) 650 mg PO Q4H PRN PRN Reason: Pain MILD(1-3)/Fever >100.5/SAUCEDO Albuterol/Ipratropium (Duoneb *Not For Prn Use*) 1 ampul IH Q6HRT [facility] Last Admin: 10/09/18 08:16 Dose: 1 ampul Documented by: Amlodipine Besylate (Norvasc) 10 mg PO DAILY [facility] Last Admin: 10/09/18 09:27 Dose: 10 mg Documented by: Aspirin (Ecotrin) 325 mg PO QDAY [facility] Carvedilol (Coreg) 25 mg PO BID [facility] Last Admin: 10/09/18 09:27 Dose: 25 mg Documented by: Dextrose (D50w (25gm) Syringe) 50 ml IV PRN PRN PRN Reason: Hypoglycemia Docusate Sodium (Colace) 100 mg PO BID [facility] Last Admin: 10/09/18 09:28 Dose: 100 mg Documented by: Ezetimibe (Zetia) 10 mg PO QHS [facility] Ergocalciferol (Vitamin D2) 50,000 unit PO Th [facility] Furosemide (Lasix) 20 mg PO BID@0600,1800 [facility] Last Admin: 10/09/18 06:51 Dose: 20 mg Documented by: Heparin Sodium (Porcine) (Heparin) 5,000 unit SUB-Q Q8HR [facility] Last Admin: 10/09/18 06:51 Dose: 5,000 unit Documented by: Hydralazine HCl (Apresoline) 50 mg PO BID [facility] Last Admin: 10/09/18 09:26 Dose: 50 mg Documented by: Insulin Human Lispro (Humalog) 0 unit SUB-Q [facility]; Protocol Last Admin: 10/09/18 12:43 Dose: Not Given Documented by: Metolazone (Zaroxolyn) 5 mg PO QDAY [facility] Last Admin: 10/09/18 09:26 Dose: 5 mg Documented by: Nifedipine (Procardia Xl) 30 mg PO QDAY [facility] Last Admin: 10/09/18 09:27 Dose: 30 mg Documented by: Nitroglycerin (Nitrostat) 0.4 mg SL Q5M PRN PRN Reason: Chest Pain Ondansetron HCl (Zofran) 4 mg IV Q8H PRN PRN Reason: Nausea And Vomiting Oxycodone/Acetaminophen (Percocet 5/325) 1 tab PO Q6H PRN PRN Reason: Pain, Moderate (4-6) Potassium Chloride (K-Dur) 20 meq PO BID [facility] Last Admin: 10/09/18 09:27 Dose: 20 meq Documented by: Pravastatin Sodium (Pravachol) 80 mg PO QHS [facility] Sodium Bicarbonate (Sodium Bicarbonate) 650 mg PO BID [facility] Last Admin: 10/09/18 09:27 Dose: 650 mg Documented by: Sodium Chloride (Sodium Chloride Flush Syringe 10 Ml) 10 ml IV BID [facility] Last Admin: 10/09/18 09:27 Dose: 10 ml Documented by: Sodium Chloride (Sodium Chloride Flush Syringe 10 Ml) 10 ml IV PRN PRN PRN Reason: LINE FLUSH Tizanidine HCl (Zanaflex) 2 mg PO BID [facility] Last Admin: 10/09/18 09:27 Dose: 2 mg Documented by: Zolpidem Tartrate (Ambien) 5 mg PO QHS PRN PRN Reason: Insomnia Review of Systems Cardiovascular: chest pain, shortness of breath, no orthopnea, no palpitations, no rapid/irregular heart beat, no edema, no syncope, no lightheadedness Physical Examination Vital Signs Temp Pulse Resp BP Pulse Ox 97.8 F 80 18 165/77 98 10/08/18 21:06 10/08/18 21:06 10/08/18 21:06 10/08/18 21:06 10/08/18 21:06 General appearance: no acute distress HEENT: Positive: PERRL Neck: Positive: neck supple Cardiac: Positive: Reg Rate and Rhythm Lungs: Positive: Decreased Breath Sounds Neuro: Positive: Grossly Intact Abdomen: Positive: Soft Male genitourinary: Positive: deferred Skin: Positive: Clear Extremities: Absent: edema Results 10/09/18 01:07 10/09/18 01:07 Coagulation 10/08/18 Range/Units 21:20 PT 11.8 L (12.2-14.9) Sec. INR 0.82 L (0.87-1.13) APTT 20.7 L (24.2-36.6) Sec. Lipids 10/08/18 Range/Units 21:20 Triglycerides 101 (2-149) mg/dL Cholesterol 148 (50-199) mg/dL HDL Cholesterol 110 H (40-59) mg/dL Cholesterol/HDL Ratio 1.34 % CBC 10/08/18 10/09/18 Range/Units 21:20 01:07 WBC 10.8 10.8 (4.5-11.0) K/mm3 RBC 4.47 4.25 (3.65-5.03) M/mm3 Hgb 12.2 11.6 L (11.8-15.2) gm/dl Hct 35.0 L 33.4 L (35.5-45.6) % Plt Count 251 248 (140-440) K/mm3 Lymph # 1.9 1.8 (1.2-5.4) K/mm3 [place] # 0.7 0.6 (0.0-0.8) K/mm3 Eos # 0.1 0.0 (0.0-0.4) K/mm3 Baso # 0.1 0.0 (0.0-0.1) K/mm3 Comprehensive Metabolic Panel 10/08/18 10/09/18 Range/Units 21:20 01:07 Sodium 144 140 (137-145) mmol/L Potassium 3.2 L 3.3 L (3.6-5.0) mmol/L Chloride 98.1 98.9 (98-107) mmol/L Carbon Dioxide 24 23 (22-30) mmol/L BUN 84 H 83 H (9-20) mg/dL Creatinine 4.1 H 4.0 H (0.8-1.5) mg/dL Glucose 77 60 L (75-100) mg/dL Calcium 8.6 8.6 (8.4-10.2) mg/dL EKG interpretations - Telemetry EKG Rhythm: Sinus Rhythm Assessment and Plan - Patient Problems (1) Chest pain Current Visit: Yes Status: Acute Plan to address problem: Chest pain is atypical, ECG shows no ischemic changes. We will get a thallium stress test in the morning.
[2018-10-09] MEDS ORDERED: PROVENTIL IH PRN (19:48)
[2018-10-09] MEDS ORDERED: PROVENTIL IH SCH (20:00)
[2018-10-09] MEDS ORDERED: PRAVACHOL PO SCH (22:00)
[2018-10-09] MEDS ORDERED: ZETIA PO SCH (22:00)
[2018-10-09] MEDS ORDERED: NON-FORMULARY (Ezetimibe/Simvastatin (Nf) 1 TAB) PO SCH (22:00)
[2018-10-10] MEDS: HEPARIN SUB-Q SCH ×2 (05:05→13:38)
[2018-10-10] MEDS: LASIX PO SCH ×2 (05:05→17:45)
[2018-10-10 05:33] LABS: Basophils % (Auto) 0.6 % (0.0-1.8); Eosinophils # (Auto) 0.5 K/mm3 (0.0-0.4); Eosinophils % (Auto) 6.4 % (0.0-4.3); Hematocrit 30.8 % (35.5-45.6); Hemoglobin 10.8 gm/dl (11.8-15.2); Lymphocytes # (Auto) 2.7 K/mm3 (1.2-5.4); Lymphocytes % (Auto) 38.5 % (13.4-35.0); Mean Corpuscular HGB Conc 35 % (32-34); Mean Corpuscular Volume 79 fl (84-94); Monocytes # (Auto) 0.7 K/mm3 (0.0-0.8); Monocytes % (Auto) 9.4 % (0.0-7.3); Platelet Count 225 K/mm3 (140-440); Red Blood Count 3.92 M/mm3 (3.65-5.03); Red Cell Distribution Width 13.9 % (13.2-15.2)
[2018-10-10 06:12] LABS: Albumin 3.5 g/dL (3.9-5); Calcium 7.8 mg/dL (8.4-10.2)
[2018-10-10] MEDS: HumaLOG SUB-Q SCH ×3 (08:25→17:07)
[2018-10-10] MEDS ORDERED: ECOTRIN PO SCH (10:00)
[2018-10-10] MEDS ORDERED: VITAMIN D2 PO SCH (10:00)
--- NOTE | 2018-10-10 11:19 | Discharge Summary ---
Providers - Providers Date of Admission: 10/09/18 04:38 Date of discharge: 10/10/18 Attending physician: SARAHY MATSON 10/09/18 Consult to Cardiac Rehabilitation [CONS] Routine Reason For Exam: Phase I 10/09/18 00:32 Consult to Cardiology [CONS] Routine Consulting Provider: NUBIA GUY Reason For Exam: chest pain Primary care physician: TIGIST HEWITT Hospitalization Condition: Fair Hospital course: 58-year-old male presents to the emergency department with a complaint of midsternal chest pain and shortness of breath that started about 30 minutes prior to arrival. The symptoms worsen with exertion. He denied any fever, nausea, vomiting or diaphoresis. He did not take anything for his symptoms prior to arrival. He has a past medical history of hypertension, insulin-dependent diabetes, chronic kidney disease, CHF. His primary care physician is Dr. Tigist Hewitt, cooler room worker is Dr. Coates, and his warehouse operator is Dr. Guy. No recent travel or sick contacts at home. The patient underwent a lung VQ scan which was low probability for PE. Chest x-ray showed no acute cardiopulmonary process including no infiltrates or pulmonary edema. EKG showed no abnormalities. Follow-up echocardiogram revealed LVEF 55-60% with LVH, his last echocardiogram in December 2017 showed year for 50-55% no evidence of LVH mild pulmonary hypertension. CT scan of the chest was essentially negative with exception of small calcified granulomatous lymph nodes. Cardiology was consulted. Stress test was completed and if found to be negative patient will discharge home. Dedicated discharge time 32 minutes Disposition: -01 TO HOME OR SELFCARE Time spent for discharge: 32 - Discharge Diagnoses (1) Acute chest pain Status: Acute (2) Chest pain Status: Acute (3) Chronic kidney disease, stage IV (severe) Status: Acute (4) Hypertension Status: Acute Qualifiers: Hypertension type: essential hypertension Qualified Code(s): I10 - Essential (primary) hypertension (5) CHF (congestive heart failure) Status: Acute Qualifiers: Qualified Code(s): I50.9 - Heart failure, unspecified (6) Type 2 diabetes mellitus with diabetic chronic kidney disease Status: Chronic Core Measure Documentation - Palliative Care Palliative Care/ Comfort Measures: Not Applicable - Core Measures Any of the following diagnoses?: none Exam - Constitutional Vitals: Temp Pulse Resp BP Pulse Ox 98.2 F 58 L 18 140/83 100 04/04/19 08:11 10/10/18 08:11 10/10/18 08:11 10/10/18 08:11 10/10/18 08:11 General appearance: Present: no acute distress, well-nourished - EENT Eyes: Present: PERRL ENT: hearing intact, clear oral mucosa - Neck Neck: Present: supple, normal ROM - Respiratory Respiratory effort: normal Respiratory: bilateral: CTA - Cardiovascular Heart Sounds: Present: S1 & S2. Absent: rub, click - Extremities Extremities: pulses symmetrical, No edema Peripheral Pulses: within normal limits - Abdominal General gastrointestinal: Present: soft, non-tender, non-distended, normal bowel sounds Male genitourinary: Present: normal - Integumentary Integumentary: Present: clear, warm, dry - Musculoskeletal Musculoskeletal: gait normal, strength equal bilaterally - Psychiatric Psychiatric: appropriate mood/affect, intact judgment & insight - Neurologic Neurologic: CNII-XII intact, moves all extremities Plan Activity: no restrictions Weight Bearing Status: Full Weight Bearing Diet: diabetic, renal Follow up with: TIGIST HEWITT MD [Primary Care Provider] - 3-5 Days ELIANA LORENZO MD [Staff Physician] - 7 Days Prescriptions: Zolpidem [Ambien] 5 mg PO QHS PRN #30 tablet PRN Reason: Insomnia hydrALAZINE [Apresoline TAB] 50 mg PO BID #60 tablet Aspirin EC [Aspirin Enteric Coated TAB] 325 mg PO QDAY #30 tablet Carvedilol [Coreg] 25 mg PO BID #60 tablet Potassium Chloride [K-Dur] 20 meq PO BID #60 tablet Furosemide [Lasix TAB] 20 mg PO BID #60 tablet metOLazone [Metolazone] 5 mg PO QDAY #30 tablet Nitroglycerin [Nitrostat] 0.4 mg SL Q5M PRN #30 tablet PRN Reason: Chest Pain amLODIPine [Norvasc] 10 mg PO DAILY #30 tablet oxyCODONE /ACETAMINOPHEN [Percocet 5/325 mg] 1 tab PO Q6H PRN #10 tablet PRN Reason: Pain, Moderate (4-6) Pravastatin [Pravachol] 80 mg PO QHS #30 tablet NIFEdipine XL [Procardia Xl] 30 mg PO QDAY #30 tablet Sodium Bicarbonate 650 mg PO BID #60 tablet Ergocalciferol [Vitamin D2] 1 cap PO 1XW #10 capsule tiZANidine [Zanaflex] 2 mg PO BID #30 tablet Ezetimibe [Zetia] 10 mg PO QHS #30 tablet
[2018-10-10] MEDS: APRESOLINE PO SCH (13:34)
[2018-10-10] MEDS: SODIUM BICARBONATE PO SCH (13:34)
[2018-10-10] MEDS: ZANAFLEX PO SCH (13:34)
[2018-10-10] MEDS: COLACE PO SCH (13:35)
[2018-10-10] MEDS: COREG PO SCH (13:35)
[2018-10-10] MEDS: PROCARDIA XL PO SCH (13:35)
[2018-10-10] MEDS: K-DUR PO SCH (13:35)
--- NOTE | 2018-10-10 13:35 | Event Note ---
Date: 10/10/18 The patient exercised for 10 minutes of the breast below, reaching stage IV, no chest pain with exercise and no ST changes of ischemia. Thallium perfusion images are pending for final interpretation of this test.
[2018-10-10] MEDS: NORVASC PO SCH (13:36)
[2018-10-10] MEDS: ZAROXOLYN PO SCH (13:36)
[2018-10-10 16:39] VITALS: BP 115/63
--- NOTE | 2018-10-11 00:04 | Treadmill Report ---
THALLIUM STRESS TEST LEFT VENTRICLE: Left ventricle is at the upper limits of normal in size. Perfusion study demonstrates homogeneous uptake of the tracer in all segments, no significant perfusion defects identified. Gated analysis demonstrates mild left ventricular systolic dysfunction, ejection fraction 44%. CONCLUSION: No demonstrable ischemia on thallium perfusion images. Recommend clinical correlation and echocardiographic reassessments of left ventricular chamber size and systolic function. [facility]# [id number] CA/NTS
== END 2018-10-10 18:02 | disposition home or self-care (01) | DRG 313 ==
LOC: ED 20:52 → 4A 10-09 04:38
PROVIDERS: ADMIT Internal Medicine Geriatric Medicine; ATTEND Hospitalist
DX: R07.9 Chest pain, unspecified (principal); E87.6 Hypokalemia; N18.4 Chronic kidney disease, stage 4 (severe); E78.5 Hyperlipidemia, unspecified; E11.9 Type 2 diabetes mellitus without complications; I50.9 Heart failure, unspecified; I13.0 Hypertensive heart and chronic kidney disease with heart failure and stage 1 through stage 4 chronic kidney disease, or unspecified chronic kidney disease; Z83.3 Family history of diabetes mellitus; Z82.49 Family history of ischemic heart disease and other diseases of the circulatory system; Z79.84 Long term (current) use of oral hypoglycemic drugs
CPT/HCPCS: 36415; 71046; 71250; 78452; 78582; 80048; 80053; 80061; 81001; 82962; 83036; 83735; 83880; 84100; 84484; 85025; 85379; 85610; 85730; 90732; 93005; 93010; 93017; 93306; 94640; 96372; G0378; A9270-GY; A9502; A9540; A9558; J1644; J1815; J2270

== ENCOUNTER 2019-05-21 12:43 | Emergency (ER) | payer OTHER ==
--- NOTE | 2019-05-21 13:03 | Emergency Department Report ---
Blank Doc - Documentation Documentation: 58-year-old male that presents with CP. HX of CHF. This initial assessment/diagnostic orders/clinical plan/treatment(s) is/are subject to change based on patient's health status, clinical progression and re- assessment by fellow clinical providers in the ED. Further treatment and workup at subsequent clinical providers discretion. Patient/guardians urged not to elope from the ED as their condition may be serious if not clinically assessed and managed. Initial orders include: 1- Patient sent to [facility] for further evaluation and treatment 2- labs 3- EKG 4- UA
--- NOTE | 2019-05-21 14:04 | XRay Report ---
CHEST 2 VIEWS INDICATION: Chest Pain. COMPARISON: 10/08/2018 FINDINGS: Support devices: None. Heart: Within normal limits. Lungs/pleura: No acute air space or interstitial disease. No pneumothorax. Additional findings: None. IMPRESSION: Normal chest x-ray Signer Name: Cuong Porras Jr, MD Signed: 05/21/2019 1:59 PM Workstation Name: [id number]
[2019-05-21 14:22] LABS: Basophils % (Auto) 0.5 % (0.0-1.8); Eosinophils # (Auto) 0.2 K/mm3 (0.0-0.4); Eosinophils % (Auto) 2.9 % (0.0-4.3); Hematocrit 34.3 % (35.5-45.6); Hemoglobin 12.1 gm/dl (11.8-15.2); Lymphocytes # (Auto) 1.7 K/mm3 (1.2-5.4); Lymphocytes % (Auto) 20.9 % (13.4-35.0); Mean Corpuscular HGB Conc 35 % (32-34); Mean Corpuscular Volume 79 fl (84-94); Monocytes # (Auto) 0.6 K/mm3 (0.0-0.8); Monocytes % (Auto) 8.1 % (0.0-7.3); Platelet Count 226 K/mm3 (140-440); Red Blood Count 4.35 M/mm3 (3.65-5.03); Red Cell Distribution Width 13.9 % (13.2-15.2)
[2019-05-21 14:30] LABS: INR 0.86 (0.87-1.13)
[2019-05-21 14:31] LABS: Partial Thromboplastin Time 27.5 Sec. (24.2-36.6)
[2019-05-21] MEDS ORDERED: ACETAMINOPHEN 325 MG TAB PO ONE (14:42)
[2019-05-21] MEDS ORDERED: FAMOTIDINE 20 MG TAB PO ONE (14:42)
--- NOTE | 2019-05-21 14:44 | Emergency Department Report ---
ED General Adult HPI - General Chief complaint: Chest Pain Stated complaint: CHEST PAIN Time Seen by Provider: 05/21/19 13:02 Source: patient, RN notes reviewed, old records reviewed Mode of arrival: Ambulatory Limitations: No Limitations - History of Present Illness Initial comments: Primary care Dr.: Dr. Shahbaz Hewitt Nephrology: Dr. Waldrop Cardiology: [facility] Past medical history: This is a 58-year-old gentleman who is not known to this provider previously. He has a history of end-stage renal disease, but is not on dialysis. The patient had an echocardiogram at this hospital October 2018, which showed ejection fraction 55-60%. Also, earlier on this year, October 2018, had a nuclear stress test, negative for ischemic findings. He also had a noncontrast CT scan of the chest negative for acute disease, and a low probability nuclear medicine study. The patient presents to the ER with 24 hours of intermittent chest tightness. Chest tightness worsens with position, and deep inspiration. There is no vomiting, or diaphoresis. The tightness does not radiate anywhere. The patient denies DVT and pulmonary embolism risk factors. He has runny nose and dry cough. Apparently a family member also has cold-like symptoms. He is compliant with aspirin therapy. He denies cocaine use. He denies additional injuries and additional complaints. -: Gradual Location: chest Radiation: non-radiation Quality: aching Consistency: intermittent Improves with: rest, other (improves with certain positions such as neutral) Worsens with: other (worsens with certain positions, such as leaning forward, or sitting back.) - Related Data Home Medications Medication Instructions Recorded Confirmed Last Taken AtorvaSTATin 40 mg PO DAILY 04/04/19 04/04/19 Unknown Cholecalciferol (Vitamin D3) 50,000 units PO DAILY 04/04/19 04/04/19 Unknown [Vitamin D3 50,000UNIT CAP] Dulaglutide [Trulicity] 1.5 mg SQ 1XW 04/04/19 04/04/19 Unknown Insulin Lispro Protamin/Lispro 30 units SQ TID 04/04/19 04/04/19 Unknown [HumaLOG Mix 75-25 Kwikpen] NIFEdipine XL [Procardia Xl] 90 mg PO QDAY 04/04/19 Unknown hydrALAZINE [Apresoline TAB] 100 mg PO BID 04/04/19 Unknown Previous Rx's Medication Instructions Recorded Last Taken Type Aspirin EC 325 mg PO QDAY #30 tablet 10/10/18 Unknown Rx Ergocalciferol [Vitamin D2] 1 cap PO 1XW #10 capsule 10/10/18 Unknown Rx Furosemide [Lasix TAB] 20 mg PO BID #60 tablet 10/10/18 Unknown Rx Nitroglycerin [Nitrostat] 0.4 mg SL Q5M PRN #30 tablet 10/10/18 Unknown Rx Potassium Chloride [K-Dur] 20 meq PO BID #60 tablet 10/10/18 Unknown Rx carvediloL [Coreg] 25 mg PO BID #60 tablet 10/10/18 Unknown Rx metOLazone [Metolazone] 5 mg PO QDAY #30 tablet 10/10/18 Unknown Rx tiZANidine [Zanaflex 4mg TAB] 2 mg PO BID #30 tablet 10/10/18 Unknown Rx Allergies Allergy/AdvReac Type Severity Reaction Status Date / Time No Known Allergies Allergy Verified 03/26/18 16:07 ED Review of Systems ROS: Stated complaint: CHEST PAIN Other details as noted in HPI Constitutional: denies: fever, malaise, weakness ENT: congestion Respiratory: cough Cardiovascular: chest pain Gastrointestinal: denies: nausea, vomiting Genitourinary: denies: dysuria Musculoskeletal: denies: back pain Skin: denies: lesions Neurological: denies: weakness Hematological/Lymphatic: denies: easy bleeding ED Past Medical Hx - Past Medical History Previous Medical History?: Yes Hx Hypertension: Yes Hx Congestive Heart Failure: Yes Hx Diabetes: Yes Hx Renal Disease: Yes (decreased kidney function ) Hx Sickle Cell Disease: Yes (TRAIT) Hx Arthritis: Yes (JOINTS HX GOUT TOP FEET.) Hx Asthma: No Hx COPD: No Hx Tuberculosis: No - Surgical History Past Surgical History?: Yes Additional Surgical History: "nerve procedure on elbow", 10/02/2018 - Social History Smoking Status: Never Smoker Substance Use Type: None - Medications Home Medications: Home Medications Medication Instructions Recorded Confirmed Last Taken Type Aspirin EC 325 mg PO QDAY #30 tablet 10/10/18 Unknown Rx Ergocalciferol [Vitamin D2] 1 cap PO 1XW #10 capsule 10/10/18 Unknown Rx Furosemide [Lasix TAB] 20 mg PO BID #60 tablet 10/10/18 Unknown Rx Nitroglycerin [Nitrostat] 0.4 mg SL Q5M PRN #30 tablet 10/10/18 Unknown Rx Potassium Chloride [K-Dur] 20 meq PO BID #60 tablet 10/10/18 Unknown Rx carvediloL [Coreg] 25 mg PO BID #60 tablet 10/10/18 Unknown Rx metOLazone [Metolazone] 5 mg PO QDAY #30 tablet 10/10/18 Unknown Rx tiZANidine [Zanaflex 4mg TAB] 2 mg PO BID #30 tablet 10/10/18 Unknown Rx AtorvaSTATin 40 mg PO DAILY 04/04/19 04/04/19 Unknown History Cholecalciferol (Vitamin D3) 50,000 units PO DAILY 04/04/19 04/04/19 Unknown History [Vitamin D3 50,000UNIT CAP] Dulaglutide [Trulicity] 1.5 mg SQ 1XW 04/04/19 04/04/19 Unknown History Insulin Lispro Protamin/Lispro 30 units SQ TID 04/04/19 04/04/19 Unknown History [HumaLOG Mix 75-25 Kwikpen] NIFEdipine XL [Procardia Xl] 90 mg PO QDAY 04/04/19 Unknown History hydrALAZINE [Apresoline TAB] 100 mg PO BID 04/04/19 Unknown History ED Physical Exam - General Limitations: No Limitations General appearance: alert, in no apparent distress - Head Head exam: Present: atraumatic, normocephalic - Eye Eye exam: Present: normal appearance, EOMI. Absent: nystagmus - ENT ENT exam: Present: normal exam, normal orophraynx, mucous membranes moist, normal external ear exam - Neck Neck exam: Present: normal inspection, full ROM. Absent: tenderness, m eningismus - Respiratory Respiratory exam: Present: normal lung sounds bilaterally. Absent: respiratory distress - Cardiovascular Cardiovascular Exam: Present: regular rate, normal rhythm, normal heart sounds. Absent: bradycardia, tachycardia, irregular rhythm, systolic murmur, diastolic murmur, rubs, gallop - GI/Abdominal GI/Abdominal exam: Present: soft. Absent: distended, tenderness, guarding, rebound, rigid, pulsatile mass - Rectal Rectal exam: Present: deferred - Extremities Exam Extremities exam: Present: normal inspection, full ROM, other (2+ pulses noted in the bilateral upper, lower extremities. There is no long bone tenderness. Musculoskeletal compartments are soft. The pelvis is stable.). Absent: pedal edema, joint swelling, calf tenderness - Back Exam Back exam: Present: normal inspection, full ROM. Absent: tenderness, CVA tenderness (R), CVA tenderness (L), paraspinal tenderness, vertebral tenderness - Neurological Exam Neurological exam: Present: alert, oriented X3, other (there is no facial droop. The tongue is midline. Extraocular movements are intact bilaterally. Patient speaking in full complete sentences. Shoulder shrug is intact bilaterally. Hearing is grossly intact bilaterally. Visual acuity intact to finger counting and color perception at a close distance. 5/5 strength 4 extremities. Sensation intact to light touch in 4 extremities.). Absent: motor sensory deficit - Psychiatric Psychiatric exam: Present: normal affect, normal mood - Skin Skin exam: Present: warm, dry, intact, normal color. Absent: rash ED Course Vital Signs 05/21/19 05/21/19 05/21/19 13:05 14:50 16:30 Temperature 97.9 F 98.1 F Pulse Rate 74 70 72 Respiratory 18 16 16 Rate Blood Pressure 133/71 142/77 Blood Pressure 140/77 [Left] O2 Sat by Pulse 98 98 98 Oximetry 05/21/19 05/21/19 05/21/19 17:00 17:30 18:30 Temperature Pulse Rate 70 71 72 Respiratory 16 18 11 L Rate Blood Pressure 135/74 143/80 147/83 Blood Pressure [Left] O2 Sat by Pulse 97 96 96 Oximetry 05/21/19 05/21/19 19:20 20:35 Temperature 98.3 F Pulse Rate 72 80 Respiratory 13 11 L Rate Blood Pressure 162/88 Blood Pressure 137/81 [Left] O2 Sat by Pulse 99 96 Oximetry - Reevaluation(s) Reevaluation #1: 05/21/19 16:06 Differential diagnosis, including but not limited to: Pleurisy, pericarditis, pneumonia, acute coronary syndrome, pulmonary embolism, GERD, gastritis, hiatal hernia Assessment and plan: 58-year-old gentleman with approximately 24 hours of positional and pleuritic chest pain that does not radiate any. He has no pulmonary embolism or DVT risk factors and he is low risk by well's criteria. Elevated troponin is chronic, likely secondary to chronic renal insufficiency, and is likely a type II troponin leak. The patient had a cardiac risk stratification at this hospital a few months ago. His EKG is unchanged 2. Laboratory studies appear to be at baseline. Clinically, he is not fluid overloaded. A lipid panel and BNP were sent by his screening team prior to my personal evaluation. On my initial evaluation, the patient is pleasant, calm and cooperative, and is laughing and smiling with family members and emergency room staff. He does not appear to be in any acute distress. D-dimer elevated, nuclear medicine study pending at this time to risk stratify for pulmonary embolism, although we find the patient to be low risk clinically. Repeat troponin is also pending. We will discuss with his implementation specialist payroll canceling and cutting control clerk. Most likely, the patient should be suitable to be discharged to follow-up as an outpatient. 05/21/19 16:07 Reevaluation #2: 05/21/19 16:09 Bedside transthoracic ultrasound performed by myself shows no large pericardial effusion, and left ventricular ejection fraction appears to be globally intact, mitral valve is abutting the septal wall during each contraction. No gross wall motion abnormalities appreciated. Reevaluation #3: 05/21/19 16:18 Discussed with cardiology on-call, Dr. Mir, who agrees with plan for conservative management, and is in agreement that the patient may call the office to obtain expedited outpatient follow-up. Reevaluation #4: 05/21/19 20:51 Nuclear medicine study low probability for pulmonary embolism. Patient resting comfortably and in no acute distress for many hours. He can follow-up with his outpatient implementation specialist payroll. ED Medical Decision Making - Lab Data Result diagrams: 05/21/19 13:34 05/21/19 13:34 Vital Signs 05/21/19 05/21/19 13:05 14:50 Temperature 97.9 F 98.1 F Pulse Rate 74 70 Respiratory 18 16 Rate Blood Pressure 133/71 Blood Pressure 140/77 [Left] O2 Sat by Pulse 98 98 Oximetry Lab Results 05/21/19 05/21/19 05/21/19 Range/Units 13:34 13:34 13:34 WBC 7.9 (4.5-11.0) K/mm3 RBC 4.35 (3.65-5.03) M/mm3 Hgb 12.1 (11.8-15.2) gm/dl Hct 34.3 L (35.5-45.6) % MCV 79 L (84-94) fl MCH 28 (28-32) pg MCHC 35 H (32-34) % RDW 13.9 (13.2-15.2) % Plt Count 226 (140-440) K/mm3 Lymph % (Auto) 20.9 (13.4-35.0) % [place] % (Auto) 8.1 H (0.0-7.3) % Eos % (Auto) 2.9 (0.0-4.3) % Baso % (Auto) 0.5 (0.0-1.8) % Lymph # 1.7 (1.2-5.4) K/mm3 [place] # 0.6 (0.0-0.8) K/mm3 Eos # 0.2 (0.0-0.4) K/mm3 Baso # 0.0 (0.0-0.1) K/mm3 Seg Neutrophils % 67.6 (40.0-70.0) % Seg Neutrophils # 5.4 (1.8-7.7) K/mm3 PT 11.7 L (12.2-14.9) Sec. INR 0.86 L (0.87-1.13) APTT 27.5 (24.2-36.6) Sec. D-Dimer (0-234) ng/mlDDU Sodium 142 (137-145) mmol/L Potassium 3.9 (3.6-5.0) mmol/L Chloride 99.1 (98-107) mmol/L Carbon Dioxide 22 (22-30) mmol/L Anion Gap 25 mmol/L BUN 73 H (9-20) mg/dL Creatinine 4.7 H (0.8-1.5) mg/dL Estimated GFR 16 ml/min BUN/Creatinine Ratio 16 % Glucose 129 H (75-100) mg/dL Calcium 8.8 (8.4-10.2) mg/dL Total Bilirubin 0.40 (0.1-1.2) mg/dL AST 19 (5-40) units/L ALT 21 (7-56) units/L Alkaline Phosphatase 78 (35-129) units/L Troponin T 0.066 H (0.00-0.029) ng/mL NT-Pro-B Natriuret Pep 1487 H (0-900) pg/mL Total Protein 8.1 (6.3-8.2) g/dL Albumin 4.1 (3.9-5) g/dL Albumin/Globulin Ratio 1.0 % Triglycerides 128 (2-149) mg/dL Cholesterol 122 (50-199) mg/dL LDL Cholesterol Direct 76 (50-130) mg/dL 05/21/19 Range/Units 13:43 WBC (4.5-11.0) K/mm3 RBC (3.65-5.03) M/mm3 Hgb (11.8-15.2) gm/dl Hct (35.5-45.6) % MCV (84-94) fl MCH (28-32) pg MCHC (32-34) % RDW (13.2-15.2) % Plt Count (140-440) K/mm3 Lymph % (Auto) (13.4-35.0) % [place] % (Auto) (0.0-7.3) % Eos % (Auto) (0.0-4.3) % Baso % (Auto) (0.0-1.8) % Lymph # (1.2-5.4) K/mm3 [place] # (0.0-0.8) K/mm3 Eos # (0.0-0.4) K/mm3 Baso # (0.0-0.1) K/mm3 Seg Neutrophils % (40.0-70.0) % Seg Neutrophils # (1.8-7.7) K/mm3 PT (12.2-14.9) Sec. INR (0.87-1.13) APTT (24.2-36.6) Sec. D-Dimer 275.29 H (0-234) ng/mlDDU Sodium (137-145) mmol/L Potassium (3.6-5.0) mmol/L Chloride (98-107) mmol/L Carbon Dioxide (22-30) mmol/L Anion Gap mmol/L BUN (9-20) mg/dL Creatinine (0.8-1.5) mg/dL Estimated GFR ml/min BUN/Creatinine Ratio % Glucose (75-100) mg/dL Calcium (8.4-10.2) mg/dL Total Bilirubin (0.1-1.2) mg/dL AST (5-40) units/L ALT (7-56) units/L Alkaline Phosphatase (35-129) units/L Troponin T (0.00-0.029) ng/mL NT-Pro-B Natriuret Pep (0-900) pg/mL Total Protein (6.3-8.2) g/dL Albumin (3.9-5) g/dL Albumin/Globulin Ratio % Triglycerides (2-149) mg/dL Cholesterol (50-199) mg/dL LDL Cholesterol Direct (50-130) mg/dL - EKG Data -: EKG Interpreted by Nh EKG shows normal: sinus rhythm Rate: normal - EKG Data When compared to previous EKG there are: no significant change 05/21/19 16:05 EKG #2 shows a sinus rhythm, 66 bpm, left axis deviation, left anterior fascicular block, poor all with progression, low voltage, QTC prolonged, motion artifact. The EKG is abnormal, and not consistent with ST elevation myocardial infarction. The EKG today appears to be unchanged from prior EKG from . EKG #1: - Radiology Data Radiology results: pending, report reviewed, image reviewed X-ray of the chest, interpreted by myself, negative for acute disease. Print Report Referring Physician: MELISSA BARCLAY Patient Name: RUTH ADAN Date of : 1960 Sex: Male Report Date: 2019-05-21 Report Status: Finalized Findings [address] [address] XRay Report Signed Patient: RUTH ADAN MR#: [id number] : 1960 Acct:[id number] Age/Sex: 58 / M ADM Date: 05/21/19 Loc: ED Attending Dr: Ordering Physician: MELISSA BARCLAY NP Date of Service: 05/21/19 Procedure(s): XR chest routine 2V Accession Number(s): [id number] cc: MELISSA BARCLAY NP Fluoro Time In Minutes: CHEST 2 VIEWS INDICATION: Chest Pain. COMPARISON: 10/08/2018 FINDINGS: Support devices: None. Heart: Within normal limits. Lungs/pleura: No acute air space or interstitial disease. No pneumothorax. Additional findings: None. IMPRESSION: Normal chest x-ray Signer Name: Cuong Porras Jr, MD Signed: 05/21/2019 1:59 PM Workstation Name: [id number] Transcribed By: TTR Dictated By: CUONG PORRAS JR, MD Electronically Authenticated By: CUONG PORRAS JR, MD Signed Date/Time: 05/21/191358 DD/ 58 Critical care attestation.: If time is entered above; I have spent that time in minutes in the direct care of this critically ill patient, excluding procedure time. ED Disposition Clinical Impression: Pleuritic chest pain Disposition: DC-01 TO HOME OR SELFCARE Is pt being admited?: No Does the pt Need Aspirin: No Condition: Stable Additional Instructions: Continue current outpatient medications. Avoid consumption of Motrin, ibuprofen, Naprosyn, Aleve, heavy and spicy food. Patient should follow-up with your private implementation specialist payroll within the next 3-5 days. Patient may take Tylenol [id number], 650 mg with food, every 4-6 hours, he may also take Pepcid [id number], 20 mg, once every 12-24 hours, and he should avoid heavy and spicy food. Follow-up with primary care doctor within the next month. Return t o the emergency room right away with new, worsened, different symptoms, or symptoms not present on the initial emergency room evaluation. Referrals: NUBIA GUY MD [Staff Physician] - 3-5 Days
[2019-05-21 15:02] LABS: Albumin 4.1 g/dL (3.9-5); Calcium 8.8 mg/dL (8.4-10.2)
[2019-05-21 16:08] LABS: Chol/HDL Ratio 3.69 %
--- NOTE | 2019-05-21 20:29 | Nuclear Medicine Report ---
TECHNICAL DATA: Chest imaging studies same day is compared Inhaled administration followed by immediate static images of chest in multiple projections coordin ed with breathing instructions. Followed by immediate static images of chest in multiple projections post I.V. injection. 7.0 millicuries of 133 Xenon is administered by inhalation. Pulmonary wash-in, equilibrium, and washout phases are performed. Then 5.0 millicuries of 99m Tc MAA is administered intravenously. FINDINGS: The ventilation scan is normal without evidence of delayed washout. The perfusion scan demonstrates h omogeneous uptake without evidence of segmental or subsegmental defects. IMPRESSION: Normal lung scan. Signer Name: Dain Sheets MD Signed: 05/21/2019 8:25 PM Workstation Name: [id number]
[2019-05-21 21:36] VITALS: BP 160/79
== END 2019-05-21 21:10 | disposition home or self-care (01) ==
LOC: ED 12:43
DX: R07.81 Pleurodynia (principal); D57.3 Sickle-cell trait; M19.90 Unspecified osteoarthritis, unspecified site; E11.22 Type 2 diabetes mellitus with diabetic chronic kidney disease; I13.2 Hypertensive heart and chronic kidney disease with heart failure and with stage 5 chronic kidney disease, or end stage renal disease; N18.6 End stage renal disease; Z79.4 Long term (current) use of insulin; Z79.899 Other long term (current) drug therapy; Z98.890 Other specified postprocedural states
CPT/HCPCS: 36415; 71046; 78582; 80053; 80061; 82550; 83880; 84484; 85025; 85379; 85610; 85730; 93005; 93010; 99285; A9540; A9558

== ENCOUNTER 2022-01-30 17:07 | Emergency (ER) | payer OTHER ==
[2022-01-30 18:00] VITALS: BP 128/60
--- NOTE | 2022-01-31 09:42 | Electrocardiograph Report ---
[facility] Test Date: 2022-01-30 Test Time: 18:01:39 Pat Name: RUTH ADAN Department: Room: Gender: M Park Interpreter: ALESSIO : 1960 Requested By: NICOLE BARROW Order Number: [id number] Reading MD: Kwabena Ruth Measurements Intervals [place] Rate: 65 P: 38 MA: 137 QRS: -60 QRSD: 95 T: 126 QT: 405 QTc: 422 Interpretive Statements Sinus rhythm LAD, consider LAFB or inferior infarct Abnormal T, consider ischemia, lateral leads No previous ECG available for comparison Electronically Signed On 01-31-2022 9:41:22 EDT by Kwabena Ruth
== END 2022-01-31 09:27 | disposition left against medical advice (07) ==
LOC: ED 17:07
DX: I11.9 Hypertensive heart disease without heart failure (principal); I50.9 Heart failure, unspecified; Z53.21 Procedure and treatment not carried out due to patient leaving prior to being seen by health care provider
CPT/HCPCS: 93005